=== PATIENT | female | born 1985 | race Caucasian/White ===

== ENCOUNTER 2016-11-12 13:52 | Outpatient (CLI) | payer OTHER ==
[~2016-11-12] VITALS: Ht 160 cm; Wt 90.5 kg
[~2016-11-12 13:52] MED LIST: FLINTSTONES1 CTB PO; MAKENA250 MG/ML; PRENATAL1 TA1 PO; ZOFRAN 4MG T4 MG/TAB PO
[2016-11-12 14:08] VITALS: BP 119/66; PULSE 81; TEMP 98.1
[2016-11-12 15:00] VITALS: BP 122/58; PULSE 83
[2016-11-12 15:07] LABS: PH 7 (5-8); SQUAMOUS EPITHELIAL 0-2 /hpf; URINE APPEARANCE Clear; URINE BACTERIA None Seen /hpf; URINE BILIRUBIN Negative (NEGATIVE); URINE BLOOD Negative (NEGATIVE); URINE COLOR Yellow; URINE GLUCOSE Negative (NEGATIVE); URINE KETONE Negative (NEGATIVE); URINE RBC 0-2 /hpf; URINE UROBILINOGEN Negative (NEGATIVE); URINE WBC 0-2 /hpf
[2016-11-12 15:30] VITALS: BP 118/67; PULSE 74
== END 2016-11-12 15:35 | disposition home or self-care (01) ==
LOC: LDRO 13:52
PROVIDERS: Obstetrics & Gynecology
DX: O99.89 Other specified diseases and conditions complicating pregnancy, childbirth and the puerperium (principal); M54.9 Dorsalgia, unspecified; Z3A.37 37 weeks gestation of pregnancy

== ENCOUNTER 2016-11-23 12:37 | Outpatient (CLI) | payer OTHER ==
[~2016-11-23] VITALS: Ht 160 cm; Wt 90.9 kg
[~2016-11-23 12:37] MED LIST changes: +PRENATAL MVI; -PRENATAL1 TA1 PO
[2016-11-23 12:54] VITALS: BP 122/65; PULSE 83; TEMP 97.5
[2016-11-23 14:00] VITALS: BP 110/65; PULSE 85
== END 2016-11-23 14:10 | disposition home or self-care (01) ==
LOC: LDRO 12:37
DX: O62.9 Abnormality of forces of labor, unspecified (principal); Z3A.38 38 weeks gestation of pregnancy

== ENCOUNTER 2016-11-27 07:06 | Inpatient (IN) | payer OTHER ==
[2016-11-27] VITALS (24 sets, daily range): BP systolic 97–130; BP diastolic 54–77; PULSE 67–88; TEMP 97.3–98.7
[~2016-11-27] VITALS: Ht 160 cm; Wt 92.5 kg
[2016-11-27] MEDS ORDERED: CALCIUM 600MG+D1 TAB PO (07:36)
[2016-11-27 08:13] LABS: BASO % 0.3 % (0.0-2.0); EOS # 0.1 (0.0-0.7); EOS % 1.4 % (0-4.0); GRAN # 4.8 (1.4-6.5); GRAN % 67.9 % (42.2-75.2); HEMATOCRIT 35.1 % (37.0-47.0); HEMOGLOBIN 11.7 g/dl (12.5-16.0); LYMPH # 1.6 (1.2-3.4); LYMPH % 23.4 % (20.0-51.0); MEAN CELL VOLUME 87 fl (80.0-100.0); MEAN CORPUSCULAR HEMOGLOBIN 29 pg (27.0-31.0); MEAN CORPUSCULAR HGB CONC 33 g/dl (33.0-37.0); MEAN PLATELET VOLUME 13.3 fl (7.4-10.4); MONO # 0.5 (0.1-0.6); MONO % 6.6 % (1.7-9.3); PLATELET COUNT 108 K/mm3 (130-400); RED BLOOD COUNT 4.03 M/mm3 (4.10-5.30); REDCELL DISTRIBUTION WIDTH-CV 14.4 % (11.5-14.5)
[2016-11-27] MEDS ORDERED: PERCOCET 325 MG1 TA2 PO (11:28)
[2016-11-27] MEDS ORDERED: MOTRIN 800800 MG/TAB PO (11:28)
[2016-11-28 07:00] VITALS: BP 114/72; PULSE 86; TEMP 97.8
[2016-11-28 08:35] LABS: BASO % 0.2 % (0.0-2.0); EOS # 0.1 (0.0-0.7); EOS % 1.3 % (0-4.0); GRAN # 6.3 (1.4-6.5); LYMPH # 2.1 (1.2-3.4); LYMPH % 23.2 % (20.0-51.0); MEAN CELL VOLUME 90 fl (80.0-100.0); MEAN CORPUSCULAR HGB CONC 32 g/dl (33.0-37.0); MEAN PLATELET VOLUME 13.2 fl (7.4-10.4); MONO # 0.6 (0.1-0.6); MONO % 6.8 % (1.7-9.3); PLATELET COUNT 105 K/mm3 (130-400); RED BLOOD COUNT 3.67 M/mm3 (4.10-5.30); REDCELL DISTRIBUTION WIDTH-CV 14.6 % (11.5-14.5); WHITE BLOOD COUNT 9.2 K/mm3 (4.8-10.8)
[2016-11-28 08:39] LABS: HEMATOCRIT 32.9 % (37.0-47.0); HEMOGLOBIN 10.5 g/dl (12.5-16.0); MEAN CORPUSCULAR HEMOGLOBIN 29 pg (27.0-31.0)
[2016-11-28 16:15] VITALS: BP 99/56; PULSE 77; TEMP 97.5
[2016-11-28 19:30] VITALS: BP 113/70; PULSE 80; TEMP 98.1
[2016-11-29 08:41] VITALS: BP 123/79; PULSE 80; TEMP 97.6
== END 2016-11-29 13:55 | disposition home or self-care (01) | DRG 774 ==
LOC: LDR 07:06 → OB 07:06 → LDR 07:12 → OB 14:30
PROVIDERS: Obstetrics & Gynecology
PROC: 10E0XZZ Delivery of Products of Conception, External Approach (ICD-10-PCS; principal; 2016-11-27)
PROC: 0UBK0ZZ Excision of Hymen, Open Approach (ICD-10-PCS; 2016-11-27)
DX: O36.0130 Maternal care for anti-D [Rh] antibodies, third trimester, not applicable or unspecified (principal); O99.42 Diseases of the circulatory system complicating childbirth; I45.9 Conduction disorder, unspecified; O34.211 Maternal care for low transverse scar from previous cesarean delivery; N85.8 Other specified noninflammatory disorders of uterus; O69.1XX0 Labor and delivery complicated by cord around neck, with compression, not applicable or unspecified; O99.89 Other specified diseases and conditions complicating pregnancy, childbirth and the puerperium; N89.8 Other specified noninflammatory disorders of vagina; Z95.0 Presence of cardiac pacemaker; Z3A.39 39 weeks gestation of pregnancy; Z37.0 Single live birth
CPT/HCPCS: J2590; J2791; J2795; J7120

== ENCOUNTER 2019-02-26 09:41 | Day surgery (SDC) | payer OTHER ==
[2019-02-26] VITALS (8 sets, daily range): BP systolic 84–114; BP diastolic 36–74; PULSE 58–65; TEMP 98.6
[~2019-02-26] VITALS: Ht 160.1 cm; Wt 78.0 kg
[~2019-02-26 09:41] MED LIST changes: +CALCIUM 600MG+D1 TAB PO; +MOTRIN 800800 MG/TAB PO; +PERCOCET 325 MG1 TA2 PO
[2019-02-26] MEDS ORDERED: MELATIN 3 MG-11 TAB PO (10:15)
[2019-02-26 10:23] LABS: HEMOGLOBIN 14.1 g/dl (12.5-16.0); MEAN CELL VOLUME 89 fl (80.0-100.0); MEAN CORPUSCULAR HEMOGLOBIN 30 pg (27.0-31.0); MEAN CORPUSCULAR HGB CONC 34 g/dl (33.0-37.0); MEAN PLATELET VOLUME 12.3 fl (7.4-10.4); PLATELET COUNT 148 K/mm3 (130-400); RED BLOOD COUNT 4.74 M/mm3 (4.10-5.30)
[2019-02-26 10:39] LABS: CALCIUM 8.9 mg/dL (8.4-10.2); CREATININE, serum 0.79 (0.52-1.25)
--- NOTE | 2019-02-26 11:06 | NUR ---
SEE MERGE DOCUMENTATION FOR MEDICATION ADMINISTRATION TIMES AND INTRA/POST PROCEDURE SEDATION ASSESSMENTS.
[2019-02-26] MEDS ORDERED: CEPHALEXIN500 M1 PO (12:17)
--- NOTE | 2019-02-26 14:40 | NUR ---
Discharge instructions given to pt.Pt verbalizes understanding.INT removed,catheter tip intact.Pt escorted out via wheelchair by this nurse.
== END 2019-02-26 14:59 | disposition home or self-care (01) ==
LOC: COL.CAR 09:41
PROVIDERS: Internal Medicine Cardiovascular Disease
DX: Z45.010 Encounter for checking and testing of cardiac pacemaker pulse generator [battery] (principal); I45.9 Conduction disorder, unspecified
CPT/HCPCS: J0690; J2250; J3010; J7030

== ENCOUNTER → 2020-02-06 | Outpatient (CLI) | payer OTHER ==
[~2020-02-06] MED LIST changes: +CEPHALEXIN500 M1 PO; +MELATIN 3 MG-11 TAB PO
== END ==
LOC: COL.RAD 08:30
DX: M22.41 Chondromalacia patellae, right knee (principal)